=== PATIENT | male | born 1975 | race African-American/Black ===

== ENCOUNTER 2018-09-23 11:52 | Emergency (ER) | payer OTHER ==
[~2018-09-23] VITALS: Ht 172.7 cm; Wt 68.0 kg
[2018-09-23 15:30] VITALS: BP 120/71
== END 2018-09-23 15:58 | disposition home or self-care (01) ==
LOC: ER 11:52
DX: R55 Syncope and collapse (principal); I95.1 Orthostatic hypotension; E78.00 Pure hypercholesterolemia, unspecified; I10 Essential (primary) hypertension
CPT/HCPCS: 36415; 82962; 84484; 93005; 99284